=== PATIENT | female | born 1950 | race Caucasian/White ===

== ENCOUNTER 2022-09-28 09:05 | Emergency (ER) | payer BC, MEDICAID ==
[~2022-09-28] VITALS: Ht 157.5 cm; Wt 57.0 kg
[2022-09-28 09:21] VITALS: BP 179/84
[2022-09-28] MEDS ORDERED: GABA300C MT (09:58)
== END 2022-09-28 10:53 | disposition home or self-care (01) ==
LOC: ER 09:05
DX: B02.29 Other postherpetic nervous system involvement (principal); I10 Essential (primary) hypertension
CPT/HCPCS: 99283

== ENCOUNTER 2022-09-30 18:52 | Emergency (ER) | payer BC, MEDICAID ==
[~2022-09-30] VITALS: Ht 152.4 cm; Wt 50.0 kg
[~2022-09-30 18:52] MED LIST: GABA300C MT
[2022-09-30 19:04] VITALS: BP 163/97
[2022-09-30 19:38] LABS: BASOPHILS % 0.6 % (0.0-2.0); EOSINOPHILS % 0.2 % (0.0-5.0); HEMATOCRIT. 40.2 % (36.0-48.0); HEMOGLOBIN. 13.7 g/dL (12.0-16.0); MEAN CORPUSCULAR VOLUME 93.7 fL (81.0-99.0); MEAN PLATELET VOLUME 7.5 fl (7.4-10.4); NEUTROPHILS % 83.2 % (40.0-76.0); PLATELET 363 x1000/uL (130-400); RED BLOOD CELL COUNT 4.29 mill/uL (4.2-5.4); RED CELL DISTRIBUTION WIDTH 13.4 % (11.6-14.6)
[2022-09-30 19:42] LABS: CHLORIDE 103 mEq/L (98-107)
== END 2022-10-01 00:16 | disposition home or self-care (01) ==
LOC: ER 18:52
DX: S06.0X0A Concussion without loss of consciousness, initial encounter (principal); W01.0XXA Fall on same level from slipping, tripping and stumbling without subsequent striking against object, initial encounter; Y93.89 Activity, other specified; Y92.89 Other specified places as the place of occurrence of the external cause; Y99.8 Other external cause status; I10 Essential (primary) hypertension
CPT/HCPCS: 36415; 71045; 80053; 84484; 85025; 93005; 99285